=== PATIENT | male | born 1985 | race Caucasian/White ===

== ENCOUNTER → 2021-02-24 00:09 | Outpatient (CLI) | payer OTHER, SELFPAY ==
[2021-02-24 16:57] LABS: SARS-CoV-2 RNA PCR Negative
== END ==
PROVIDERS: PCP Family Medicine; Visit Provider Internal Medicine Gastroenterology
DX: Z01.812 Encounter for preprocedural laboratory examination (principal); Z20.822 Contact with and (suspected) exposure to COVID-19
CPT/HCPCS: C9803; U0003; U0005

== ENCOUNTER 2021-02-28 01:43 | Day surgery (SDC) | payer OTHER, SELFPAY ==
[2021-02-07 08:37] VITALS: BMI 29.2
[2021-02-28 11:14] VITALS: BP 128/83; PULSE 70; RESP 20; TEMP 36; O2SAT 100
[2021-02-28] MEDS: LACTATED RINGERS 1,000 ML 150 ML IV CONT (11:17)
--- NOTE | 2021-02-28 12:00 | WPDANESEPPF ---
Anes - Initial Pre Proc Eval Procedure: Operation Date: 02/28/21 12:15 Proposed Procedures p Esophagogastroduodenoscopy - Jc Welch MD Date/Time: 02/28/21 12:00 Surgeon: Jc Welch MD Pre Op Diagnosis: dysphagia Patient Data Age: 35 Gender: M Height: 1.93 m Weight: 108.7 kg Last Vital Signs Temp 96.8 F L 02/28/21 11:14 Pulse 70 02/28/21 11:14 Resp 20 02/28/21 11:14 BP 128/83 02/28/21 11:14 Pulse Ox 100 02/28/21 11:14 Allergies Allergy/AdvReac Type Severity Reaction Status Date / Time No Known Allergies Allergy Verified 02/28/21 11:13 Home Medications Medication Instructions Recorded Confirmed Type esomeprazole magnesium [Nexium] 20 - 40 mg PO DAILY 02/07/21 02/28/21 History ibuprofen 200 mg PO PRN PRN 02/07/21 02/28/21 History Patient hx anesthesia problems: none Family hx anesthesia problems: none [facility] Past Medical History Medical History (Updated 02/28/21 @ 11:58 by Saleem Bailey MD) GERD (gastroesophageal reflux disease) Social History Social History (Updated 01/19/21 @ 15:04 by Kati Terry CMA) Smoking status: Never smoker Second hand tobacco smoke exposure: No Smoking end date: 09/01/08 Alcohol intake: never Substance use: never Substance use type: does not use Living arrangements: with family Spiritual care concerns: No Agree to blood products: Yes Anes - Eval Final PreProcedure Day of Procedure 02/28/21 12:00 Patient weight: obese Heart: regular rate and rhythm Lungs: clear to auscultation Airway: Mallampati scale class II Neurological: alert and oriented Last oral intake: >/= 8 hours ASA classification: II Emergent: no Anesthetic plan: proceed Anesthesia type and monitoring: general GIVS and standard monitoring Informed Consent: The patient's anesthetic plan and its attendant risks and benefits were discussed with the patient/family/POA. Questions were solicited and answers provided to the satisfaction of the patient/family/POA.
--- NOTE | 2021-02-28 12:50 | PM.HPGS ---
History of Present Illness History of Present Illness Consent: Risks, benefits, and alternatives have been discussed and questions answered. Patient agrees to proceed with procedure. Chief complaint: dysphagia Narrative: Luis Manuel Bowen is a 35 year old male with gerd using nexium OTC with only partial relief, never had egd. Review of Systems Constitutional: Constitutional: Denies headache(s) and Denies weakness Eyes: Eyes: Denies blurry vision ENT: Reports Normal hearing present, Denies headache(s) and Denies neck pain Cardiovascular: Cardiovascular: Denies chest pain and Denies dyspnea Respiratory: Respiratory: Denies dyspnea Gastrointestinal: Gastrointestinal: Reports no additional gastrointestinal complaints Genitourinary: Genitourinary: Denies dysuria Musculoskeletal: Musculoskeletal: Denies neck pain Integumentary/Breasts: Skin/Breast: Denies dry skin Neurologic: Reports Normal hearing present, Denies headache(s) and Denies weakness Psychiatric: Psychiatric: Denies anxiety Endocrine: Endocrine: Denies change in body appearance Hematologic/Lymphatic: Hematologic/Lymphatic: Denies easy bleeding Allergic/Immunologic: Allergic/Immunologic: Denies urticaria PMFSH Past Medical History Medical History (Updated 02/28/21 @ 12:50 by Jc Welch MD) GERD (gastroesophageal reflux disease) Social History Social History (Updated 01/19/21 @ 15:04 by Kati Terry CMA) Smoking status: Never smoker Second hand tobacco smoke exposure: No Smoking end date: 09/01/08 Alcohol intake: never Substance use: never Substance use type: does not use Living arrangements: with family Spiritual care concerns: No Agree to blood products: Yes Meds Home Medications and Allergies Home Medications Medication Instructions Recorded Confirmed Type ibuprofen 200 mg PO PRN PRN 02/07/21 02/28/21 History esomeprazole magnesium 40 mg 40 mg PO DAILY #30 cap 02/28/21 Rx capsule,delayed release Allergies Allergy/AdvReac Type Severity Reaction Status Date / Time No Known Allergies Allergy Verified 02/28/21 11:13 Vital Signs Vital Signs - 24 hr 02/28/21 11:14 Temperature 96.8 F L Pulse Rate 70 Respiratory Rate 20 Blood Pressure 128/83 Pulse Oximetry 100 Exam Const: General: comfortable and no acute distress HENMT: General nose exam: Normal nares present Eyes: General: appearance normal, both eyes and all related structures Neck: Neck: no JVD Resp: Auscultation: clear to auscultation bilaterally Cardio: Rate: regular rate Rhythm: regular rhythm GI: Inspection: non-distended GI Palp: Yes Soft to palpation Skin: General skin exam: normal color Neuro: General: gait normal Speech: normal speech Extrem: General: normal to inspection Psych: Mental Status: mental status grossly normal Assessment and Plan Assessment and plan (1) GERD (gastroesophageal reflux disease): Code(s): K21.9 - Gastro-esophageal reflux disease without esophagitis Status: Inactive Assessment and Plan: egd with bx
[2021-02-28 12:52] VITALS: BP 116/74; PULSE 57; RESP 17; O2SAT 100
[2021-02-28 13:02] VITALS: BP 114/86; PULSE 65; RESP 24; O2SAT 100
[2021-02-28 13:12] VITALS: BP 122/86; PULSE 70; RESP 23; O2SAT 100
== END 2021-02-28 13:28 | disposition home or self-care (01) ==
PROVIDERS: PCP Family Medicine; Visit Provider Internal Medicine Gastroenterology
PROC: 0DJ08ZZ Inspection of Upper Intestinal Tract, Via Natural or Artificial Opening Endoscopic (ICD-10-PCS; CPT 43235; principal; 2021-02-28 12:15)
DX: K21.9 Gastro-esophageal reflux disease without esophagitis (principal); K29.50 Unspecified chronic gastritis without bleeding; E66.9 Obesity, unspecified; Z68.29 Body mass index [BMI] 29.0-29.9, adult
CPT/HCPCS: 43239; 88305; C9803; J2704; J7120; U0003; U0005

== ENCOUNTER → 2021-08-23 11:00 | Outpatient (CLI) | payer OTHER, SELFPAY ==
--- NOTE | ~2021-08-23 | XR_ITS ---
EXAMINATION: XR chest 2V 08/23/2021 11:10 INDICATION: Cough PROCEDURE: 2 view chest COMPARISON: 04/22/2018 FINDINGS: The lungs are clear. The cardiomediastinal silhouette is within normal limits. There are no pleural effusions. There is no pneumothorax suspected. IMPRESSION: 1: NO ACUTE CARDIOPULMONARY DISEASE. Reviewed, dictated and finalized at location A. MANAGER CPA
== END ==
PROVIDERS: PCP Family Medicine; Visit Provider Physician Assistant
DX: R05.9 Cough, unspecified (principal)
CPT/HCPCS: 71046

== ENCOUNTER 2021-11-16 08:20 | Outpatient (CLI) | payer OTHER, SELFPAY ==
--- NOTE | 2021-11-19 17:12 | WPDHOMESLEEP ---
Sleep Study - Home Unattended Date of Study: 11/16/21 Ordering Provider: Kadi Turcios MD Interpreting Provider: Mallika Valentin, DO Home Sleep Study Type: Watch PAT Height: 1.93 m Weight: 110.223 kg Body Mass Index: 29.5 Neck Circumference (inches): 16.25 [place]: 7 Reason for Sleep Study Unrefreshing sleep, Witnessed apneas Sleep History The patient is a 36-year-old male with GERD that had a home sleep test ordered by his primary care due to unrefreshing sleep and witnessed apneic episodes. The patient denies awakening from sleep short of breath. He occasionally awakens at night with heartburn, belching or cough. He rarely snores and never snores loud enough that others complain. He rarely has trouble sleeping when he has a cold. He denies waking up gasping for air throughout the night. He occasionally has breathing problems at night observed by himself or others. He rarely sweats excessively at night. He occasionally has heart palpitations or irregular heartbeats during the night. He rarely falls asleep during the day and never while driving. He occasionally has trouble at work due to sleepiness. He denies sleep paralysis and cataplexy. He occasionally experiences vivid dreamlike scenes upon awakening or falling asleep. He rarely has nightmares. He occasionally has thoughts racing through his mind. He rarely feels sad or depressed. He occasionally has anxiety. He rarely has muscular tension. He denies noticing parts of his body jerk. He denies kicking during the night. He rarely has crawling and aching feelings in his legs. He denies having leg pain during the night. He denies grinding his teeth during sleep awakening with morning jaw pain. He denies being bothered by pain during the day and being awakened by pain during the night. He rarely wakes up feeling stiff in the morning with sore or achy muscles. He rarely wakes up with pain in the neck, spine or other joints. He goes to bed at 8:00 p.m. on weekdays and 9:00 p.m. on the weekends. He is able to fall asleep quickly. He wakes up a few times throughout the night. when he awakens, he will try to go back asleep. He is unsure how long he stays awake for. He wakes up at 4:30 a.m. on weekdays and 7:00 a.m. on the weekends. He typically gets 8 hours of sleep throughout the night. Does not stay in bed after waking up in the morning. He currently lives with his and son. He does not consume any caffeinated beverages within 2 hours of bedtime. He does not engage in physical exercise before bedtime. Will watch television before falling asleep. He does not take naps in afternoon or the evening. He will consume 1 caffeinated beverages throughout the day. He quit smoking several years ago. He denies alcohol and recreational drug use. [facility] Past Medical History Medical History GERD (gastroesophageal reflux disease) History of COVID-19 Social History Social History Second hand tobacco smoke exposure: No Smoking end date: 09/01/08 Alcohol intake: never Substance use: never Substance use type: does not use Spiritual care concerns: No Agree to blood products: Yes Medications Home Medications Medication Instructions Recorded Confirmed Type ibuprofen 200 mg PO PRN PRN 02/07/21 08/23/21 History esomeprazole magnesium 40 mg 40 mg PO DAILY #30 cap 07/30/21 08/23/21 Rx capsule,delayed release cetirizine 10 mg tablet 10 mg PO DAILY #30 tablet 08/23/21 08/23/21 Rx triamcinolone acetonide 0.1 % 1 applic TOPICAL BID #30 g 08/23/21 08/23/21 Rx topical cream Sleep Procedure The sleep study was completed using Perfectore a technically adequate device with seven channels: peripheral arterial tone, actigraphy, body position, snore, respiratory movement, pulse oximetry, sleep staging, and heart rate. Prior to using the device, th
[2021-11-19 17:34] VITALS: BMI 29.5
== END 2021-11-19 11:14 | disposition home or self-care (01) ==
LOC: ANHCSM 08:21
PROVIDERS: PCP Family Medicine; Visit Provider Family Medicine
DX: G47.30 Sleep apnea, unspecified (principal); G47.9 Sleep disorder, unspecified
CPT/HCPCS: 95800

== ENCOUNTER → 2022-08-10 07:30 | Outpatient (CLI) | payer OTHER, SELFPAY ==
--- NOTE | ~2022-08-10 | US_ITS ---
EXAMINATION: US abdomen complete DATE: 08/10/2022 08:29 INDICATION: R74.8 - Abnormal levels of other serum enzymes TECHNIQUE: Multiple grayscale and Doppler ultrasound images of the abdomen were obtained. COMPARISON: None available. FINDINGS: Exam limited by body habitus. Pancreas obscured by bowel gas. The liver is normal size with increased echogenicity and normal echotexture. No surface nodularity. Normal hepatopetal flow in the main portal vein. The gallbladder is normal with no abnormal wall thickening, pericholecystic fluid or stones. The common bile duct measures 2 mm. There was no sonographic Hughes sign. The visualized p ortions of the aorta and inferior vena cava are normal. The right kidney measures 11.5 x 4.8 x 5.6. The left kidney measures 12.5 x 5.2 x 5.5. The kidneys de monstrate normal parenchymal echogenicity. There is no hydronephrosis. The spleen is normal in appear ance and measures 13 cm. IMPRESSION: Echogenic liver, most commonly due to steatosis but also can be seen with hepatitis and fibrosis. Oth erwise normal abdominal ultrasound findings. Reviewed, dictated and finalized at location K. LOPMENT ASSISTANT IMPRESSION: Echogenic liver, most commonly due to steatosis but also can be seen with hepat itis and fibrosis. Otherwise normal abdominal ultrasound findings.
== END ==
PROVIDERS: PCP Physician Assistant; Visit Provider Physician Assistant
DX: R74.8 Abnormal levels of other serum enzymes (principal)
CPT/HCPCS: 76700

== ENCOUNTER 2023-01-31 08:11 | Outpatient (CLI) | payer OTHER, SELFPAY ==
--- NOTE | 2023-02-21 11:31 | WPDSLEEPSTUD ---
Sleep Study Date of Study: 01/31/23 Ordering Provider: Gely Neville PA-C Interpreting Physician: Liliana Cardoza MD Sleep Study Type: Polysomnogram Height: 1.93 m Weight: 111.13 kg Body Mass Index: 29.8 Neck Circumference (inches): 16 [place]: 7 Reason for Sleep Study Daytime hypersomnia * 11/16/2022 home sleep test with a normal AHI of 2.0 which is not consistent with sleep disordered breathing.? However, the patient had an RDI ( respiratory disturbance index) of 13.4 (normal <5). For this reason, he is having an in-lab nocturnal polysomnogram with a sleep aid to evaluate for sleep disordered breathing Sleep History Luis Manuel Bowen is a 37-year-old male with history of GERD who presented to the sleep lab for a sleep study to re-evaluate daytime hypersomnia. He had a home sleep test 11/16/2021 which showed an overall AHI of 2.0, not consistent with sleep disordered breathing. That study showed RDI of 13.4. Due to the discrepancy between the AHI and the RDI, it was recommended the patient have an in-lab split study. He did not fill out a new sleep questionnaire for this study. The following sleep history was obtained from his home sleep test 11/16/2021. He has a history of GERD. He had a prior home sleep test due to unrefreshing sleep and witnessed apneic episodes.? The patient denies awakening from sleep short of breath.? He occasionally awakens at night with heartburn, belching or cough.? He rarely snores and never snores loud enough that others complain.? He rarely has trouble sleeping when he has a cold.? He denies waking up gasping for air throughout the night.? He occasionally has breathing problems at night observed by himself or others.? He rarely sweats excessively at night.? He occasionally has heart palpitations or irregular heartbeats during the night.? He rarely falls asleep during the day and never while driving.? He occasionally has trouble at work due to sleepiness.? He denies sleep paralysis and cataplexy.? He occasionally experiences vivid dreamlike scenes upon awakening or falling asleep.? He rarely has nightmares.? He occasionally has thoughts racing through his mind.? He rarely feels sad or depressed.? He occasionally has anxiety.? He rarely has muscular tension.? He denies noticing parts of his body jerk.? He denies kicking during the night.? He rarely has crawling and aching feelings in his legs.? He denies having leg pain during the night.? He denies grinding his teeth during sleep awakening with morning jaw pain.? He denies being bothered by pain during the day and being awakened by pain during the night.? He rarely wakes up feeling stiff in the morning with sore or achy muscles.? He rarely wakes up with pain in the neck, spine or other joints.? He goes to bed at 8:00 p.m. on weekdays and 9:00 p.m. on the weekends.? He is able to fall asleep quickly.? He wakes up a few times throughout the night.? When he awakens, he will try to go back asleep.? He is unsure how long he stays awake for.? He wakes up at 4:30 a.m. on weekdays and 7:00 a.m. on the weekends.? He typically gets 8 hours of sleep throughout the night.? Does not stay in bed after waking up in the morning.? He currently lives with his and son.? He does not consume any caffeinated beverages within 2 hours of bedtime.? He does not engage in physical exercise before bedtime.? Will watch television before falling asleep.? He does not take naps in afternoon or the evening. Habits: He will consume 1 caffeinated beverages throughout the day.? He quit smoking several years ago.? He denies alcohol and recreational drug use. [facility] Past Medical History Medical History GERD (gastroesophageal reflux disease) History of COVID-19 Family History Family History (Updated 08/01/22 @ 08:31 by Kati Terry CMA) Grandparent Diabetes mellitus Social History Social History (Updated 08/01/22 @ 09:06 by Gely Torres
[2023-02-21 11:47] VITALS: BMI 29.8
== END 2023-02-01 06:13 | disposition home or self-care (01) ==
LOC: ANHCSM 08:12
PROVIDERS: PCP Physician Assistant; Visit Provider Physician Assistant
DX: G47.33 Obstructive sleep apnea (adult) (pediatric) (principal); G47.9 Sleep disorder, unspecified
CPT/HCPCS: 95810

== ENCOUNTER 2024-11-05 14:45 | Outpatient (CLI) | payer OTHER, SELFPAY ==
--- OUTSIDE RECORDS SUMMARY | 2024-11-05 14:52 | XMS_ITS | Referral Summary ---
Author Organization [facility] Address [address] [place] [address] Care Team Providers Care Content Strategist Name Role Phone Kadi Turcios MD Primary Care Provider Source Comments [facility],non-owned Affiliates and Associated Physician Practices is amultiple site organization consisting of ambulatory clinics and hospital sitesin [place], [place], [place] and [place]. This disclosure is being madepursuant to the Care Everywhere program and may not contain all information available regarding this patient. Last updated 18.[facility] Allergies No known active allergies Medications * Be aware that medications may not be up to date on this document. Alwaysverify current medications with the patient. Medication Sig Dispensed Refills Start Date End Date Status ibuprofen (MOTRIN) 400 MG tablet Take 400 mg by mouth q6h PRN (Pain). 07/15/2017 Active esomeprazole (NEXIUM) 20 MG capsule Take 20 mg by mouth. 06/26/2017 Active Social History Tobacco Use Types Packs/Day Years Used Date Smoking Tobacco: Former Smokeless Tobacco: Never Alcohol Use Standard Drinks/Week Comments Yes 1 (1 standard drink = 0.6 oz pur e alcohol) Sex and Gender Information Value Date Recorded Sex Assigned at Not on file Gender Identity Not on file Sexual Orientation Not on file Last Filed Vital Signs Vital Sign Reading Time Taken Comments Blood Pressure 122/68 01/28/2018 4:13 PM CDT Pulse 69 01/28/2018 4:13 PM CDT Temperature 36.6 C (97.9 F) 01/28/2018 4:13 PM CDT Respiratory Rate 16 01/28/2018 4:13 PM CDT Oxygen Saturation 97% 01/28/2018 4:13 PM CDT Inhaled Oxygen Concentration - - Weight 99.8 kg (220 lb) 01/28/2018 4:13 PM CDT Height 193 cm (6' 4 ) 01/28/2018 4:13 PM CDT Body Mass Index 26.78 01/28/2018 4:13 PM CDT Plan of Treatment Not on file Care Teams Content Strategist Relationship Specialty Start Date End Date Kadi Turcios MD [address] [place] [address] PCP - General 06/26/17
--- OUTSIDE RECORDS SUMMARY | 2024-11-05 14:52 | XMS_ITS | Clinical Summary ---
Author Organization [facility] Address [address] [place] [address] Care Team Providers Care Full Service Supervisor Name Role Phone Kadi Turcios MD Primary Care Provider [phone] Source Comments [facility],non-owned Affiliates and Associated Physician Practices is amultiple site organization consisting of ambulatory clinics and hospital sitesin [place], [place], [place] and [place]. This disclosure is being madepursuant to the Care Everywhere program and may not contain all information available regarding this patient. Last updated 18.[facility] Allergies No known active allergies Medications * [...] 01/28/2018 4:13 PM CDT Plan of Treatment Health Maintenance Due Date Last Done Comments HIV SCREENING 2000 HEPATITIS C SCREENING 06/07/2003 DTAP/TDAP/TD VACCINES (1 - Tdap) 2004 HEPATITIS B VACCINE (1 of 3 - 19+ 3-dose series) 2004 COVID-19 VACCINE (1 - 2023-2 5 season) 2024 INFLUENZA VACCINE (#1) 2024 DEPRESSION SCREENING 09/01/2024 ZOSTER VACCINE (1 of 2) 2035 HIB VACCINE Aged Out No longer eligi ble based on patient's age to complete this topic HPV VACCINE Aged Out No longer eligi ble based on patient's age to complete this topic MENINGOCOCCAL (Group B) VACCINE Aged Out No longer eligible based on patient's age to complete this topic MENINGOCOCCAL VACCINE Aged Out No noha lizzie eligible based on patient's age to complete this topic PNEUMOCOCCAL VACCINE Aged Out No long er eligible based on patient's age to complete this topic Care Teams Full Service Supervisor Relationship Specialty Start Date End Date Kadi Turcios MD [address] [place] [address] PCP - General 06/26/17
--- OUTSIDE RECORDS SUMMARY | 2024-11-05 14:52 | XMS_ITS | Patient Health Summary ---
Author Organization [facility] Address [address] [place] [address] Care Team Providers Care Chute Builder Name Role Phone Kadi Turcios MD Primary Care Provider [phone] Note from [facility],non-owned Affiliates and Associated Physician Practices is amultiple site organization consisting of ambulatory clinics and hospital sitesin [place], [place], [place] and [place]. This disclosure is being madepursuant to the Care Everywhere program and may not contain all information available regarding this patient. Last updated 18.[facility] Allergies No known active allergies Medications * Be aware that medications may not be up to date on this document. Alwaysverify current medications with the patient. * ibuprofen (MOTRIN) 400 MG tablet(Started 07/15/2017) Take 400 mg by mouth q6h PRN (Pain). * esomeprazole (NEXIUM) 20 MG capsule(Started 06/26/2017) Take 20 mg by mouth. Social History Tobacco Use Types Packs/Day Years [...] Mass Index 26.78 01/28/2018 4:13 PM CDT Procedures * XR CHEST 2VW(Performed 07/15/2017) * EKG 12-LEAD(Performed 07/15/2017) * CT HEAD WO CONTRAST(Performed 06/26/2017) * CT CERVICAL SPINE WO CONTRAST(Performed 06/26/2017) * CT CHEST ABDOMEN PELVIS W CONT(Performed 06/26/2017) * COMPREHENSIVE METABOLIC PANEL(Performed 06/26/2017) * PTT [facility](Performed 06/26/2017) * PT-INR [facility](Performed 06/26/2017) * CBC W AUTO DIFFERENTIAL(Performed 06/26/2017) * CBC W AUTO DIFFERENTIAL(Performed 06/26/2017) * TYPE + SCREEN PANEL(Performed 06/26/2017) * XR CHEST 1VW PORTABLE(Performed 06/26/2017) Results * XR CHEST 2VW (07/15/2017 4:04 PM REGULATORY LAW SPECIALIST) Anatomical Region Laterality Modality Chest Other Impressions 07/16/2017 10:52 AM REGULATORY LAW SPECIALIST IMPRESSION: No acute pulmonary process. Dictated by Tony Fowler MD (resident services supervisor). This report was approved by Tony Fowler on 07/16/2017 8:21 AM . I, . Dr. SAVANAH FLOR MD have personally reviewed and interpreted this examination/study. This report was electronically signed by Dr. SAVANAH FLOR MD on 07/16/2017 10:52 AM . Narrative 07/16/2017 10:52 AM REGULATORY LAW SPECIALIST EXAMINATION: XR CHEST PA AND LATERAL HISTORY: Chest Pain FINDINGS: Comparison made with study from 06/26/2017 The lungs are clear. There is no focal consolidation, pleural effusion, or pneumothorax. The cardiomediastinal silhouette is normal. The visible bony thorax is intact. Procedure Note Savanah Flor MD - 11/28/2017 EXAMINATION: XR CHEST PA AND LATERAL HISTORY: Chest Pain FINDINGS: Comparison made with study from 06/26/2017 The lungs are clear. There is no focal consolidation, pleural effusion, orpneumothorax. The cardiomediastinal silhouette is normal. The visible bonythorax is intact. IMPRESSION IMPRESSION: No acute pulmonary process. Dictated by Tony Fowler MD (resident services supervisor). This report was approved by Tony Fowler on 07/16/2017 8:21 AM . I, . Dr. SAVANAH FLOR MD have personally reviewed and interpreted thisexamination/study. This report was electronically signed by Dr. SAVANAH FLOR MD on07/16/2017 10:52 AM . Alfredo Ramsey MD DIAGNOSTIC IMAGING O RDERABLES * EKG 12-LEAD (07/15/2017 12:00 AM REGULATORY LAW SPECIALIST) EKG [facility] Comment: Exam Date/Time: Jul 15 2017 16:34:54 Test Reason : shortness of breath Blood Pressure : / mmHG Vent. Rate : 082 BPM Atrial Rate : 082 BPM P-R Int : 168 ms QRS Dur : 092 ms QT Int : 354 ms P-R-T Axes : 026 061 028 degrees QTc Int : 413 ms Normal sinus rhythm with sinus arrhythmia Normal ECG No previous ECGs available Confirmed by Keri ELLIOTT, LOVE ([id number]), video editor Rashawn Mancilla ([id number]) on 07/30/2017 2:06:18 PM Referred By: REFERRING NO Confirmed By:LOVE ELLIOTT M.D. 07/15/2017 Alfredo Ramsey MD ECG ORDERABLES [facility] * CT CHEST ABDOMEN PELVIS W CONT (06/26/2017 12:05 PM CDT) Anatomical Region Laterality Modality Chest, Abdomen, Pelvis Other Impressions 06/26/2017 12:41 PM CDT Impression: 1. No acute traumatic injury of the chest, abdomen or pelvis. 2. 4 mm nodule in the right upper lobe does not need follow-up if there are no risk factors. Findings were discussed with Leila in the emergency department by Dr. Espinosa on 06/26/2017 at 12:40 PM. This report was electronically signed by FALLON ESPINOSA M.D. on 06/26/2017 12:41 PM . Narrative 06/26/2017 12:41 PM CDT Exam: CT CHEST ABDOMEN PELVIS W CONTRAST Date: 06/26/2017 12:06 PM History: Trauma Technique: Multislice helical with intravenous contrast using the standard trauma protocol of the chest, abdomen and pelvis. 100 cc Omnipaque 350 intravenous. Findings: CHEST: A 4 mm nodule is noted in the right upper lobe (image 52 series 5). No pulmonary consolidation, pleural effusion, or pneumothorax is seen. Minimal dependent atelectasis is present. The airway is patent. The thyroid gland is homogeneous. The heart and great vessels are intact. The pulmonary artery is normal. No adenopathy is seen within the chest. Abdomen and pelvis: The liver is homogeneous. The gallbladder is not distended. No biliary dilatation is seen. A few calcified granulomas are noted within the spleen which is otherwise normal in appearance. The pancreas, adrenal glands, and kidneys are normal. The abdominal aorta is normal in caliber course and caliber without significant atherosclerotic disease. No free fluid or free air is seen within the abdomen or pelvis. The bladder, prostate gland and seminal vesicles are normal in appearance. The colon is normal in course and caliber. Small bowel is nondilated. The appendix is normal. A fat density structure adjacent to the sigmoid colon may represent an old torsed epiploic appendage or diverticulum. No acute process is seen. Bilateral pars defect is noted at L5 with no significant subluxation. No acute fracture is seen within the chest abdomen or pelvis. Procedure Note Eva Espinosa MD - 11/28/2017 Exam: CT CHEST ABDOMEN PELVIS W CONTRAST Date: 06/26/2017 12:06 PM History: Trauma Technique: Multislice helical with intravenous contrast using thestandard trauma protocol of the chest, abdomen and pelvis. 100 ccOmnipaque 350 intravenous. Findings: CHEST: A 4 mm nodule is noted in the right upper lobe (image 52 series 5).No pulmonary consolidation, pleural effusion, or pneumothorax is seen.Minimal dependent atelectasis is present. The airway is patent. The thyroid gland is homogeneous. The heart and great vessels are intact.The pulmonary artery is normal. No adenopathy is seen within the chest. Abdomen and pelvis: The liver is homogeneous. The gallbladder is notdistended. No biliary dilatation is seen. A few calcified granulomas arenoted within the spleen which is otherwise normal in appearance. Thepancreas, adrenal glands, and kidneys are normal. The abdominal aorta is normal in caliber course and caliber withoutsignificant atherosclerotic disease. No free fluid or free air is seenwithin the abdomen or pelvis. The bladder, prostate gland and seminal vesicles are normal in appearance.The colon is normal in course and caliber. Small bowel is nondilated. Theappendix is normal. A fat density structure adjacent to the sigmoid colonmay represent an old torsed epiploic appendage or diverticulum. No acute process is seen. Bilateral pars defect is noted at L5 with no significant subluxation. Noacute fracture is seen within the chest abdomen or pelvis. IMPRESSION Impression: 1. No acute traumatic injury of the chest, abdomen or pelvis. 2. 4 mm nodule in the right upper lobe does not need follow-up if thereare no risk factors. Findings were discussed with Leila in the emergency department by on 06/26/2017 at 12:40 PM. This report was electronically signed by FALLON ESPINOSA M.D. on06/26/2017 12:41 PM . Historical Provider MD CT ORDERABLES * CT CERVICAL SPINE WO CONTRAST (06/26/2017 12:05 PM CDT) Anatomical Region Laterality Modality Spine Other Impressions 06/26/2017 3:50 PM CDT IMPRESSION: 1. No acute intracranial process. 2. No evidence of acute fracture in the cervical spine. This report was approved by [facility] on 06/26/2017 1:44 PM . I, Dr. ALEXA SOTO M.D. have personally reviewed and interpreted this examination/study. This report was electronically signed by ALEXA SOTO M.D. on 06/26/2017 3:50 PM . Narrative 06/26/2017 3:50 PM CDT EXAMINATION: 1. Computed tomography (CT) of the head without contrast 2. CT of the cervical spine without contrast HISTORY: Fall. Injury to the head. TECHNIQUE: CT of the head and cervical spine were performed without contrast according to standard protocol. FINDINGS: No prior study is available for comparison at the time of this dictation. Head: No acute intra- or extra-axial fluid collections are identified. The ventricles are of normal size, shape, and morphology. The basilar cisterns are patent. No mass effect or midline shift is seen. The cheek-white matter differentiation is normal. Other than mild paranasal sinus disease in sphenoid sinus and mucous retention cyst in maxillary sinus, the visualized portions of the orbits, paranasal sinuses, and mastoids appear normal. No acute fracture is identified. Cervical spine: The alignment is normal. Vertebral bodies are normal in height without evidence of acute fracture. The craniocervical junction is normal. The intervertebral discs appear normal. No central canal stenosis is seen. The facets appear normal. The uncovertebral joints appear normal. No neural foraminal stenosis is seen. No soft tissue abnormality is identified. Procedure Note Alexa Soto MD - 11/28/2017 EXAMINATION: 1. Computed tomography (CT) of the head without contrast 2. CT of the cervical spine without contrast HISTORY: Fall. Injury to the head. TECHNIQUE: CT of the head and cervical spine were performed withoutcontrast according to standard protocol. FINDINGS: No prior study is available for comparison at the time of thisdictation. Head: No acute intra- or extra-axial fluid collections are identified. Theventricles are of normal size, shape, and morphology. The basilar cisternsare patent. No mass effect or midline shift is seen. The cheek-white matterdifferentiation is normal. Other than mild paranasal sinus disease in sphenoid sinus and mucousretention cyst in maxillary sinus, the visualized portions of the orbits,paranasal sinuses, and mastoids appear normal. No acute fracture isidentified. Cervical spine: The alignment is normal. Vertebral bodies are normal in height withoutevidence of acute fracture. The craniocervical junction is normal. Theintervertebral discs appear normal. No central canal stenosis is seen. Thefacets appear normal. The uncovertebral joints appear normal. No neural foraminal stenosis is seen.No soft tissue abnormality is identified. IMPRESSION IMPRESSION: 1. No acute intracranial process. 2. No evidence of acute fracture in the cervical spine. This report was approved by [facility] on 06/26/2017 1:[address] ALEXA Garcia M.D. have personally reviewed and interpreted thisexamination/study. This report was electronically signed by ALEXA SOTO M.D. on 06/26/20173:50 PM . Historical Provider MD CT ORDERABLES * CT HEAD WO CONTRAST (06/26/2017 12:05 PM CDT) Anatomical Region Laterality Modality Head Other Impressions 06/26/2017 3:50 PM CDT IMPRESSION: 1. No acute intracranial process. 2. No evidence of acute fracture in the cervical spine. This report was approved by Soria Umair on 06/26/2017 1:[address] ALEXA Garcia M.D. have personally reviewed and interpreted this examination/study. This report was electronically signed by ALEXA SOTO M.D. on 06/26/2017 3:50 PM . Narrative 06/26/2017 3:50 PM CDT EXAMINATION: 1. Computed tomography (CT) of the head without contrast 2. CT of the cervical spine without contrast HISTORY: Fall. Injury to the head. TECHNIQUE: CT of the head and cervical spine were performed without contrast according to standard protocol. FINDINGS: No prior study is available for comparison at the time of this dictation. Head: No acute intra- or extra-axial fluid collections are identified. The ventricles are of normal size, shape, and morphology. The basilar cisterns are patent. No mass effect or midline shift is seen. The cheek-white matter differentiation is normal. Other than mild paranasal sinus disease in sphenoid sinus and mucous retention cyst in maxillary sinus, the visualized portions of the orbits, paranasal sinuses, and mastoids appear normal. No acute fracture is identified. Cervical spine: The alignment is normal. Vertebral bodies are normal in height without evidence of acute fracture. The craniocervical junction is normal. The intervertebral discs appear normal. No central canal stenosis is seen. The facets appear normal. The uncovertebral joints appear normal. No neural foraminal stenosis is seen. No soft tissue abnormality is identified. Procedure Note Alexa Soto MD - 11/28/2017 EXAMINATION: 1. Computed tomography (CT) of the head without contrast 2. CT of the cervical spine without contrast HISTORY: Fall. Injury to the head. TECHNIQUE: CT of the head and cervical spine were performed withoutcontrast according to standard protocol. FINDINGS: No prior study is available for comparison at the time of thisdictation. Head: No acute intra- or extra-axial fluid collections are identified. Theventricles are of normal size, shape, and morphology. The basilar cisternsare patent. No mass effect or midline shift is seen. The cheek-white matterdifferentiation is normal. Other than mild paranasal sinus disease in sphenoid sinus and mucousretention cyst in maxillary sinus, the visualized portions of the orbits,paranasal sinuses, and mastoids appear normal. No acute fracture isidentified. Cervical spine: The alignment is normal. Vertebral bodies are normal in height withoutevidence of acute fracture. The craniocervical junction is normal. Theintervertebral discs appear normal. No central canal stenosis is seen. Thefacets appear normal. The uncovertebral joints appear normal. No neural foraminal stenosis is seen.No soft tissue abnormality is identified. IMPRESSION IMPRESSION: 1. No acute intracranial process. 2. No evidence of acute fracture in the cervical spine. This report was approved by Soria Alistair on 06/26/2017 1:44 PM . I, Dr. ALEXA SOTO M.D. have personally reviewed and interpreted thisexamination/study. This report was electronically signed by ALEXA SOTO M.D. on 06/26/20173:50 PM . Historical Provider MD CT ORDERABLES * (ABNORMAL) PTT [facility] (06/26/2017 11:48 AM CDT) APTT 22.4(L) 23.0 - 38.4 Seconds [facility] Comment:Suggested therapeuti c range for full dose I.V. heparin therapy for venous thromboembolism is 66.0-91.0 seconds. Blood specimen (specimen) BLOOD SPECIMEN / Unknown 06/26/2017 11:48 AM CDT 06/26/2017 11:48 AM CDT Narrative [facility] - 06/26/2017 11:59 AM CDT Please ensure that the aPTT specimen is received in the clinical lab within 1 hour of collection if it is used for therapeutic heparin monitoring. Processing of heparinized specimens older than 1 hour may result in inaccurate test results. Is patient on Heparin, Argatroban or Dabigatran?->N Historical Provider LAB - COAGULATION ORDERABLES Performing Organization Address [facility] Co de Phone Number [address] [phone] * PT-INR [facility] (06/26/2017 11:48 AM CDT) PT 13.0 12.1 - 14.8 Seconds [facility] INR 1.0 See Comment [facility] Comment: Suggested therapeutic range for low-intensity coumadin therapy for venous thromboembolism prophylaxis is an INR of 2.0-3.0. For high risk patients (Mitral Valve Prosthesis, Atrial Fibrillation, history of TIA/stroke), suggested prophylactic therapeutic range is an INR of 2.5-3.5. Blood specimen (specimen) BLOOD SPECIMEN / Unknown 06/26/2017 11:48 AM CDT 06/26/2017 11:48 AM CDT Narrative [facility] - 06/26/2017 11:58 AM CDT Is patient on Heparin, Argatroban or Dabigatran?->N Historical Provider LAB - COAGULATION ORDERABLES Performing Organization Address [facility] de Phone Number [address] [phone] * CBC W AUTO DIFFERENTIAL (06/26/2017 11:48 AM CDT) Only the most recent of2 resultswithin the time period is included. Blood specimen (specimen) BLOOD SPECIMEN / Unknown 06/26/2017 11:48 AM CDT [facility] - 06/26/2017 11:56 AM CDT The following orders were created for panel order CBC w Differential. Procedure Abnormality Status --------- ------ CBC WITH DIFFERENTIAL[[id number]] Abnormal Final result Please view results for these tests on the individual orders. Historical Provider LAB - HEMATOLOGY ORDERABLES [facility] [address] * (ABNORMAL) COMPREHENSIVE METABOLIC PANEL (06/26/2017 11:48 AM CDT) BUN 14 7 - 26 mg/dL [facility] Creatinine 1.0 0.6 - 1.2 mg/dL [facility] Sodium 140 136 - 145 mmol/L [facility] Potassium 4.0 3.5 - 4.5 mmol/L [facility] Chloride 106 98 - 107 mmol/L [facility] CO2 25 22 - 29 mmol/L [facility] Glucose 127(H) 70 - 115 mg/dL [facility] Calcium 9.4 8.4 - 10.2 mg/dL [facility] Protein Total 7.3 6.0 - 8.3 g/dL [facility] Albumin 4.0 3.4 - 5.0 g/dL [facility] Bilirubin Total 1.3(H) 0.2 - 1.2 mg/dL [facility] Alkaline Phosphatase 93 40 - 150 Units/L [facility] ALT 65(H) 0 - 55 Units/L [facility] AST 49(H) 5 - 34 Units/L [facility] Anion Gap 13 8 - 18 [facility] BUN/Creatinine Ratio 14 7 - 23 [facility] Osmolality Calculated 292 270 - 300 mOsm/kg [facility] Albumin/Globulin Ratio 1.2 1.1 - 2.3 [facility] eGFR >60 >60 mL/min/1.7 3 m2 [facility] Blood specimen (specimen) BLOOD SPECIMEN / Unknown 06/26/2017 11:48 AM CDT 06/26/2017 11:48 AM CDT Historical Provider LAB - CHEMISTRY O RDERABLES [facility] [address] [phone] * TYPE + SCREEN PANEL (06/26/2017 11:41 AM CDT) Typem O POS [facility] Antibody Screen NEG [facility] Blood specimen (specimen) 06/26/2017 11:41 AM CDT 06/26/2017 12:04 PM CDT Historical Provider LAB - BLOOD BANK ORDERABLES [facility] [address] [place] [address], [facility] * XR CHEST 1VW PORTABLE (06/26/2017 11:38 AM CDT) Anatomical Region Laterality Modality Chest Other Impressions 06/26/2017 1:03 PM CDT IMPRESSION: There is no focal consolidation, pleural effusion, or pneumothorax. The cardiomediastinal silhouette is normal. The visible bony thorax is intact. Dictated by Valentine Mtz MD (resident services supervisor). Dr. CARLOTTA Garcia M.D. have personally reviewed and interpreted this examination/study. This report was electronically signed by CARLOTTA CALLE M.D. on 06/26/2017 1:03 PM . Narrative 06/26/2017 1:03 PM CDT EXAMINATION: PX CHEST 1 VW HISTORY: trauma COMPARISON: No prior study is available for comparison. FINDINGS/ Procedure Note Carlotta Calle MD - 11/28/2017 EXAMINATION: PX CHEST 1 VW HISTORY: trauma COMPARISON: No prior study is available for comparison. FINDINGS/ IMPRESSION IMPRESSION: There is no focal consolidation, pleural effusion, or pneumothorax. Thecardiomediastinal silhouette is normal. The visible bony thorax isintact. Dictated by Valentine Mtz MD (resident services supervisor). Dr. CARLOTTA Garcia M.D. have personally reviewed and interpretedthis examination/study. This report was electronically signed by CARLOTTA CALLE M.D. on06/26/2017 1:03 PM . Historical Provider MD FR[facility] [place] ORDERABLES Care Teams Chute Builder Relationship Specialty Start Date End Date Kadi Turcios MD [address] [place] [address] [facility] - General 06/26/17
--- NOTE | 2024-11-05 15:09 | ECG_ITS ---
Test Date: 2024-11-05 15:15:55 Measurements Intervals [place] Rate: 90 P: 21 CT: 167 QRS: 32 QRSD: 93 T: 23 QT: 325 QTc: 398 Interpretive Statements SINUS RHYTHM NORMAL ELECTROCARDIOGRAM No previous ECG available for comparison Electronically Signed On 11-06-2024 15:30:44 LINE DRIVER by Omar Guillaume M.D.
== END 2024-11-05 14:46 | disposition home or self-care (01) ==
LOC: ANHCARD 14:49
PROVIDERS: PCP Family Medicine; Visit Provider Family Medicine
DX: R00.2 Palpitations (principal)
CPT/HCPCS: 93005